=== PATIENT | male | born 1965 | race Caucasian/White ===

== ENCOUNTER 2025-02-14 06:17 | Day surgery (SDC) | payer OTHER, SELFPAY | END 2025-02-14 09:07 | disposition home or self-care (01) | LOC: GI 06:17 | PROVIDERS: ATTENDING PHYSICIAN Internal Medicine Gastroenterology | DX: Z12.11 Encounter for screening for malignant neoplasm of colon (principal); K57.30 Diverticulosis of large intestine without perforation or abscess without bleeding; K64.8 Other hemorrhoids; K62.89 Other specified diseases of anus and rectum; Z86.0100 Personal history of colon polyps, unspecified | CPT/HCPCS: G0105 ==

== ENCOUNTER → 2025-05-21 16:16 | Outpatient (REF) | payer OTHER, SELFPAY | LOC: RCS 16:16 | PROVIDERS: ATTENDING PHYSICIAN Internal Medicine Cardiovascular Disease; FAMILY PHYSICIAN Family Medicine | DX: I42.9 Cardiomyopathy, unspecified (principal); E78.5 Hyperlipidemia, unspecified; Z79.899 Other long term (current) drug therapy; I50.20 Unspecified systolic (congestive) heart failure | CPT/HCPCS: 93306 ==